=== PATIENT | female | born 1985 | race Two or more races ===

== ENCOUNTER 2022-11-18 08:56 | Outpatient (CLI) | payer MEDICAID, OTHER | END 2022-11-18 23:59 | disposition home or self-care (01) | LOC: LAB 08:56 | PROVIDERS: ATTEND Specialist | DX: Z01.812 Encounter for preprocedural laboratory examination (principal); Z20.822 Contact with and (suspected) exposure to COVID-19 | CPT/HCPCS: U0003; C9803 ==

== ENCOUNTER 2023-03-13 05:01 | Day surgery (SDC) | payer MEDICAID ==
[~2023-03-13] VITALS: Ht 149.9 cm; Wt 105.9 kg
[2023-03-13 05:15] VITALS: BP 142/89; TEMP 98.1; O2SAT 98
[2023-03-13 05:30] VITALS: BP 142/89; TEMP 98.1; O2SAT 98
[2023-03-13 06:06] LABS: PREGNANCY TEST URINE QUAL NEGATIVE (NEGATIVE)
[2023-03-13] MEDS ORDERED: FAMOTIDINE/PF INJ 20 MG/2 ML VIAL IV ONE (06:25)
[2023-03-13] MEDS ORDERED: MIDAZOLAM HCL 2 MG/2ML VIAL ONE (06:25)
[2023-03-13] MEDS ORDERED: FENTANYL PF 100MCG/2ML AMPUL ONE ×3 (06:25→07:47)
[2023-03-13] MEDS ORDERED: MEPERIDINE25 MG SYR 25 MG/ML VIAL ONE ×2 (07:27→07:33)
[2023-03-13 08:30] VITALS: BP 110/79; TEMP 98.6; O2SAT 95
[2023-03-13] MEDS ORDERED: HYDR-500 PO (08:49)
[2023-03-13] MEDS ORDERED: METF-440 PO (08:49)
[2023-03-13 09:00] VITALS: BP_SYST 122; BP_SYST 134; BP_DIAS 74; BP_DIAS 78; TEMP 97.6; TEMP 98.6; O2SAT 94; O2SAT 95
[2023-03-13 09:30] VITALS: BP 128/72; TEMP 98.1; O2SAT 95
== END 2023-03-13 18:00 | disposition home or self-care (01) ==
LOC: DS 05:01 → MED 05:03 → UNDOADMIN 05:03 → UNDODISIN 13:48 → DS 18:00
PROVIDERS: ATTEND Specialist
DX: G56.01 Carpal tunnel syndrome, right upper limb (principal); E66.01 Morbid (severe) obesity due to excess calories; Z68.42 Body mass index [BMI] 45.0-49.9, adult; I10 Essential (primary) hypertension; M65.9 Synovitis and tenosynovitis, unspecified; Z98.890 Other specified postprocedural states; Z79.899 Other long term (current) drug therapy
CPT/HCPCS: 36415; 82962-TC; 84703-TC; 86850-TC; 87081-TC; A4565; A6402; G0378; J0690; J2175; J2250; J2405; J2704; J2765; J3010; J3490; J7030